=== PATIENT | female | born 1985 | race Caucasian/White ===

== ENCOUNTER 2025-06-04 12:39 | Day surgery (SDC) | payer OTHER, SELFPAY ==
--- NOTE | 2025-06-04 | PATH_ITS ---
[facility] Accession Number: [id number] No. of containers..01 Tissue . 01 Material submitted: . product of conception - PRODUCTS OF CONCEPTION . 01 Diagnosis: PRODUCTS OF CONCEPTION, CURETTINGS: Immature chorionic villi and decidualized endometrium with degenerative changes. Negative for gestational trophoblastic disease. [facility] 06/09/2025 1104 Local . 01 Electronically signed: . Jean Dominique MD, Pathologist NPI- [id number] . 01 Gross description: . Received in formalin with two identifiers and products of conception, are multiple bland to membranous soft tissue fragments admixed in mucohemorrhagic material aggregating to 6.4 x 5.0 x 1.7 cm. No tissue is identified. Pluck Separator sections are submitted in A1-A2. ([id number]) /MRV 06/06/2025 1733 Local . 01 Pathologist provided ICD-10: O03.9 . 01 CPT . 992395 Specimen Comment: A courtesy copy of this report has been sent to [phone] Performed at: [address] [facility] [address] [address], [place], [place] [id number] MD Alonso Jacobsen MD Phone: [phone]
[2025-06-04 13:06] VITALS: BP 112/65; PULSE 90; RESP 20; TEMP 36.7; O2SAT 100; BMI 25.7
--- NOTE | 2025-06-04 13:06 | PM.GYNHP.1 ---
History of Present Illness History of Present Illness Reason for admission: incomplete Narrative: Noemy Ac is a 39 year old , LMP 03/14/2025, who took combination medication consisting of mifepristone and misoprostol on 05/13/2025 for medical induction of AB. Patient had significant bleeding and cramping with what she believes with passage of tissue within the next 24 hours but has continued to bleed since that time. In addition she began having fevers about 4-5 days ago and was seen in the emergency room at [facility] last night for evaluation. Evaluation at that time showed a normal white count and the patient was afebrile. Imaging of the pelvis showed the uterus to be prominent with the endometrium thickened. There is heterogenous enhancement of the endometrium noted with thickness of the endometrium measured at 20.9 mm with increased vascularity. The ovaries were normal and there was no pathologic free abdominal or pelvic fluid. After discussion regarding options for management, the patient is now presenting to [facility] for suction curettage for retained products of conception since [facility]'s OR remains closed. [facility], [facility] Social History Smoking Status: Never smoker Meds Home Medications and Allergies Home Medications ?Medication ?Instructions ?Recorded ?Confirmed ?Type escitalopram oxalate 10 mg tablet 10 mg PO DAILY 06/04/25 06/04/25 History immun glob G 10 gram/50 mL(20 SUBCUT 06/04/25 History %)-prol-IgA 0-50 mcg/mL subcutaneous syr (Hizentra) immun glob G 4 gram/20 mL (20 SUBCUT 06/04/25 History %)-prol-IgA 0-50 mcg/mL subcutaneous syr (Hizentra) levothyroxine 50 mcg tablet 50 mcg PO DAILY 06/04/25 06/04/25 History Allergies Allergy/AdvReac Type Severity Reaction Status Date / Time fluconazole (From Diflucan) Allergy Swelling Verified 06/04/25 13:00 of Lip/Tongue/Throat Review of Systems Review of Systems Narrative: Problem-specific ROS positives included in HPI Exam Const General: cooperative and comfortable Nutritional Appearance: average body habitus Orientation: alert and oriented x3 HENMT Head: normal to inspection, atraumatic and abrasion Ears: hearing grossly normal bilaterally Face and sinus: face symmetric Eyes General: appearance normal, both eyes and all related structures Conjunctivae: conjunctivae normal Sclera: sclerae normal EOM: EOM intact bilaterally Neck Neck: normal visual inspection Resp Effort & Inspection: normal respiratory effort and able to speak in complete sentences Auscultation: clear to auscultation bilaterally Cardio Rate: regular rate Rhythm: regular rhythm Heart Sounds: S1 normal, S2 normal and no murmurs GI Inspection: normal to inspection Palpation: soft and no hepatosplenomegaly External Female Exam: other (No significant bleeding noted) Extrem General: no calf tenderness Psych Appearance: grossly normal Mental Status: mental status grossly normal Speech and Movement: speech and movement normal Mood: congruent mood Affect: normal affect Attitude: cooperative Thought Process: normal Thought Content: normal Judgment: judgment good Objective Labs 06/04/25 13:11 Assessment & Plan Assessment and plan (1) Primary immune deficiency disorder: Status: Acute (2) Incomplete with delayed or excessive hemorrhage: Status: Acute Plan Patient counseled regarding alternatives, risks, benefits, and potential complications associated with such a curettage of the uterus. With full understanding of the above, a written consent was executed, signed, and witnessed this date. Time-Based Coding :: Twenty minutes spent with patient and on the chart (including review of chart, obtaining history, exam, reviewing outside data, placing orders, documenting exam and treatment plan, and counseling patient) on 06/04/2025.
[2025-06-04] MEDS: LACTATED RINGERS 1,000 ML 42 ML IV (13:22)
[2025-06-04] MEDS: ACETAMINOPHEN IV 1,000 MG/100 ML VIAL 400 MG IV (13:23)
[2025-06-04] MEDS: SCOPOLAMINE 1 PATCH TOP (13:23)
[2025-06-04] MEDS: FAMOTIDINE 20 MG/2 ML VIAL IV (13:23)
[2025-06-04 13:29] LABS: INR 1.0 (0.9-1.3); Prothrombin Time 11.0 SECONDS (9.4-12.5)
[2025-06-04 13:32] LABS: PTT Partial Thromboplastin Tim 34 SECONDS (25.1-36.5)
[2025-06-04 13:54] LABS: Add Manual Diff / Slide Review NO; Hematocrit 31.7 % (36-46); Hemoglobin 11.2 g/dL (12.0-16.0); Lymphocytes Absolute Auto 1300 /uL (1100-4500); Mean Corpuscular HGB Conc 35.5 % (30-36); Mean Corpuscular Hemoglobin 31.2 PG (26-34); Mean Corpuscular Volume 87.9 fL (80-100); Platelet Count 109 X10^3/uL (150-400)
--- NOTE | 2025-06-04 14:11 | PM.PREOP ---
Pre-operative Note COVID-19 COVID-19 status: Not tested Interval Note History & Physical reviewed/Exam performed by Physician: Yes Changes to H&P: No
--- NOTE | 2025-06-04 14:11 | SUR.OPER ---
Lithotomy on padded OR bed, head on pillow, arms secured on padded arm boards at <90 degrees abduction. Legs secured in padded yellow fins stirrups.
[2025-06-04 14:16] LABS: Fibrinogen 439 mg/dL (238-498)
[2025-06-04] MEDS: CEFAZOLIN 2 GM/100 ML PREMIX 100 ML IV (14:20)
[2025-06-04 14:54] VITALS: BP 116/56; PULSE 82; RESP 16; TEMP 36.3; O2SAT 98
[2025-06-04 15:01] VITALS: BP 115/69; PULSE 77; RESP 16; TEMP 36.3; O2SAT 99
--- NOTE | 2025-06-04 15:06 | P.OP_ITS ---
Operative Date/Time/Diagnoses Date of procedure: 06/04/25 Time of procedure: 14:15 Pre-op diagnosis: Incomplete Post-op diagnosis: same Procedure & Clinicians Procedure: Procedures Operation Date: 06/04/25 14:00 Actual Procedure Side Surgeon p suction Dilation and Curettage Not Applicable Nico Wise MD Indications: Nomey Ac is a 39 year old , LMP 03/14/2025, who took combination medication consisting of mifepristone and misoprostol on 05/13/2025 for medical induction of AB. Patient had significant bleeding and cramping with what she believes with passage of tissue within the next 24 hours but has continued to bleed since that time. In addition she began having fevers about 4-5 days ago and was seen in the emergency room at [facility] last night for evaluation. Evaluation at that time showed a normal white count and the patient was afebrile. Imaging of the pelvis showed the uterus to be prominent with the endometrium thickened. There is heterogenous enhancement of the endometrium noted with thickness of the endometrium measured at 20.9 mm with increased vascularity. The ovaries were normal and there was no pathologic free abdominal or pelvic fluid. After discussion regarding options for management, the patient is now presenting to [facility] for suction curettage for retained products of conception since [facility]'s OR remains closed. Blood type is A positive. Surgeon: Nico Wise Anesthesia Type: General Operative Notes Findings: Pre evacuation of the uterus is 8-10 weeks, anteverted, soft. Abundant necrotic POCs are present within the endometrial cavity. Post evacuation of the uterus is 6-8 weeks in size and firm. Closure Type: not applicable Specimen(s): products of conception Applied: other (Pitocin 10 units IM at beginning of case) Estimated blood loss (mL): 25 Blood products transfused: none Procedure in detail: With the patient under satisfactory general endotracheal anesthesia in the modified dorsal lithotomy position, the pelvis, perineum, and lower abdomen were prepped and draped in the usual fashion for D&C. A pre-surgical safety time-out was then taken in accordance with [facility] OR protocols. A bivalve speculum was inserted in the vagina and the cervix visualized. The anterior lip of the cervix was grasped with a freeing forceps and the endocervical canal was sequentially dilated to 9 mm. An 8 mm curved suction curette was then introduced into the endometrial cavity and suction applied. Several passes with the suction curette were required for complete evacuation of the uterus and prior to initiating the curettage itself, the patient received 10 units of Pitocin IM. Once complete evacuation of the uterine cavity was assured, the ring forceps or removed from the anterior lip of the cervix. At that point the speculum was removed from the vagina and the procedure terminated. The patient was then awakened from anesthesia and transferred to the PACU for a period of observation and recovery having tolerated the procedure well. Complications: none Post-operative Condition: stable Disposition: PACU Plan for aftercare: Routine postoperative care with follow-up planned for 2 weeks after surgery.
[2025-06-04 15:10] VITALS: BP 110/65; PULSE 71; RESP 15; TEMP 36.4; O2SAT 99
[2025-06-04] MEDS: OXYCODONE IR 5 MG TABLET PO (15:24)
[2025-06-04 16:07] VITALS: BP 104/63; PULSE 72; RESP 16; TEMP 36.9; O2SAT 98
== END 2025-06-04 16:10 | disposition home or self-care (01) ==
PROVIDERS: Referring Provider Obstetrics & Gynecology; Visit Provider Obstetrics & Gynecology
PROC: (CPT 58120; principal; 2025-06-04 14:00)
DX: O07.1 Delayed or excessive hemorrhage following failed attempted termination of pregnancy (principal)
CPT/HCPCS: 59812; 36415; 82962; 85025; 85384; 85610; 85730; 86900; 86901; J0131; J0690; J1100; J1885; J2250; J2405; J2590; J2704; J3010